=== PATIENT | female | born 1980 | race Caucasian/White ===

== ENCOUNTER 2017-06-11 16:34 | Outpatient (CLI) | payer MEDICAID ==
[2017-06-11 17:12] LABS: ADD MAN DIFF? NO
[2017-06-11 17:15] LABS: BASOPHILS % 0.3 % (0.0-2.0); EOSINOPHILS % 0.1 % (0.0-7.0); HEMOGLOBIN 11.9 g/dl (12.0-16.0); LYMPHOCYTES # 0.8 10^3/ul (0.8-2.9); LYMPHOCYTES % 8.3 % (15.0-51.0); MEAN CORPUSCULAR HEMOGLOBIN 27.9 pg (29.0-33.0); MEAN CORPUSCULAR HGB CONC 33.1 g/dl (32.0-37.0); MEAN CORPUSCULAR VOLUME 84.3 fl (82.0-101.0); MEAN PLATELET VOLUME 10.4 fl (7.4-10.4); MONOCYTE # 0.5 10^3/ul (0.3-0.9); NEUTROPHIL # 7.5 10^3/ul (1.6-7.5); NEUTROPHILS % 82.3 % (39.0-77.0); PLATELET COUNT 229 10^3/UL (140-415); RED BLOOD COUNT 4.27 10^6/ul (4.20-5.40); RED CELL DISTRIBUTION WIDTH 14.8 % (11.5-14.5)
[2017-06-11 17:15] LABS: WHITE BLOOD COUNT 9.1 10^3/ul (4.8-10.8)
[2017-06-11 17:32] LABS: ALANINE AMINOTRANSFERASE 27 IU/L (13-69); ALBUMIN 3.5 g/dl (3.3-4.9); ALBUMIN/GLOBULIN RATIO 1.09; ALKALINE PHOSPHATASE 99 IU/L (42-121); ANION GAP 15 (8-16); ASPARTATE AMINO TRANSFERASE 19 IU/L (15-46); BILIRUBIN,INDIRECT 0.8 mg/dl (0-1.1); BILIRUBIN,TOTAL 0.8 mg/dl (0.2-1.3); BLOOD UREA NITROGEN 6 mg/dl (7-20); CALCIUM 9.1 mg/dl (8.4-10.2); CARBON DIOXIDE 24 mmol/L (21-31); CHLORIDE 104 mmol/L (97-110); CREATININE 0.58 mg/dl (0.44-1.00); GLUCOSE 91 mg/dl (70-220); POTASSIUM 3.9 mmol/L (3.5-5.1); SODIUM 139 mmol/L (135-144); TOTAL PROTEIN 6.7 g/dl (6.1-8.1)
[2017-06-11] MEDS ORDERED: ONDANSETRON 4 MG INJ IV (17:40)
[2017-06-11] MEDS: LACTATED RINGER'S 1,000 ML IV (17:56)
[2017-06-11 18:38] LABS: ADD UMIC YES; UR ASCORBIC ACID NEGATIVE (NEGATIVE); UR BACTERIA FEW /HPF (NONE SEEN); UR BILIRUBIN (Dip) NEGATIVE (NEGATIVE); UR BLOOD (Dip) NEGATIVE (NEGATIVE); UR CLARITY CLOUDY (CLEAR); UR COLOR YELLOW (YELLOW); UR GLUCOSE (Dip) NEGATIVE (NEGATIVE); UR KETONES (Dip) 1+ mg/dL (NEGATIVE); UR LEUKOCYTE ESTERASE (Dip) 2+ Leu/ul (NEGATIVE); UR MUCUS FEW /HPF (NONE SEEN); UR NITRITE (Dip) NEGATIVE (NEGATIVE); UR RBC 3 /HPF (0-5); UR SPECIFIC GRAVITY (Dip) 1.019 (1.003-1.030); UR SQUAMOUS EPITHELIAL CELL MANY /HPF (FEW); UR TOTAL PROTEIN (Dip) 1+ mg/dl (NEGATIVE); UR UROBILINOGEN (Dip) 1+ mg/dL (NEGATIVE); UR WBC 29 /HPF (0-5)
[2017-06-11] MEDS: CEPHALEXIN 500 MG CAP PO (21:30)
== END 2017-06-11 22:00 | disposition home or self-care (01) ==
LOC: OBT 16:34 → L-D 16:36 → OBT 22:00
DX: O23.43 Unspecified infection of urinary tract in pregnancy, third trimester (principal); Z3A.29 29 weeks gestation of pregnancy
CPT/HCPCS: 36415; 76818; 80053; 81001; 85025; 96360; 96361

== ENCOUNTER 2017-06-29 02:19 | Inpatient (IN) | payer MEDICAID ==
[2017-06-29] MEDS: LACTATED RINGER'S 1,000 ML IV* ×2 (03:08→06:43)
[2017-06-29 03:36] LABS: ADD UMIC YES; UR ASCORBIC ACID NEGATIVE (NEGATIVE); UR BILIRUBIN (Dip) NEGATIVE (NEGATIVE); UR BLOOD (Dip) 3+ mg/dL (NEGATIVE); UR CLARITY CLEAR (CLEAR); UR COLOR YELLOW (YELLOW); UR GLUCOSE (Dip) NEGATIVE (NEGATIVE); UR KETONES (Dip) NEGATIVE (NEGATIVE); UR LEUKOCYTE ESTERASE (Dip) NEGATIVE Leu/ul (NEGATIVE); UR NITRITE (Dip) NEGATIVE (NEGATIVE); UR RBC 11 /HPF (0-5); UR SPECIFIC GRAVITY (Dip) 1.009 (1.003-1.030); UR SQUAMOUS EPITHELIAL CELL FEW /HPF (FEW); UR TOTAL PROTEIN (Dip) NEGATIVE (NEGATIVE); UR UROBILINOGEN (Dip) NEGATIVE (NEGATIVE); UR WBC 3 /HPF (0-5)
[2017-06-29] MEDS: LACTATED RINGER'S 1,000 ML IV ×2 (04:35→11:48)
[2017-06-29] MEDS ORDERED: BUTORPHANOL 2 MG INJ IV (05:00)
[2017-06-29] MEDS ORDERED: CA GLUCONATE (GM) 10% 10ML INJ IV (05:00)
[2017-06-29] MEDS ORDERED: LIDOCAINE 1% (MPF) 30 ML INJ INJ (05:00)
[2017-06-29] MEDS ORDERED: OXYCODONE/ACETAMINOPHEN (5/325) TAB PO (05:00)
[2017-06-29] MEDS ORDERED: IBUPROFEN 600 MG TAB PO (05:00)
[2017-06-29] MEDS ORDERED: METHYLERGONOVINE 0.2 MG INJ IM (05:00)
[2017-06-29] MEDS ORDERED: CARBOPROST 250 MCG INJ IM (05:00)
[2017-06-29] MEDS ORDERED: MISOPROSTOL 200 MCG TAB PR (05:00)
[2017-06-29] MEDS ORDERED: OXYTOCIN 30 UNITS/LR 500 ML IV (05:00)
[2017-06-29] MEDS ORDERED: BETAMET NA PHOS/AC(6 MG/ML) 5ML INJ (05:02)
[2017-06-29] MEDS ORDERED: AMPICILLIN 2 GM/NS (PMX) 100 ML (05:02)
[2017-06-29] MEDS: BETAMET NA PHOS/AC(6 MG/ML) 5ML INJ IM (05:09)
[2017-06-29] MEDS: AMPICILLIN 2 GM/NS (PMX) 100 ML IV (05:09)
[2017-06-29] MEDS: MAGNESIUM SULFATE 4 GM/100 ML 100 ML IV (05:15)
[2017-06-29 05:40] LABS: ADD MAN DIFF? NO
[2017-06-29 05:44] LABS: WHITE BLOOD COUNT 11.9 10^3/ul (4.8-10.8)
[2017-06-29 05:44] LABS: BASOPHIL # 0.1 10^3/ul (0.0-0.1); BASOPHILS % 0.6 % (0.0-2.0); EOSINOPHILS # 0.1 10^3/ul (0.0-0.5); EOSINOPHILS % 0.8 % (0.0-7.0); HEMATOCRIT 34.9 % (37.0-47.0); HEMOGLOBIN 11.7 g/dl (12.0-16.0); LYMPHOCYTES # 2.3 10^3/ul (0.8-2.9); LYMPHOCYTES % 19.3 % (15.0-51.0); MEAN CORPUSCULAR HEMOGLOBIN 27.9 pg (29.0-33.0); MEAN CORPUSCULAR HGB CONC 33.5 g/dl (32.0-37.0); MEAN CORPUSCULAR VOLUME 83.1 fl (82.0-101.0); MEAN PLATELET VOLUME 10.6 fl (7.4-10.4); MONOCYTE # 0.7 10^3/ul (0.3-0.9); MONOCYTES % 6.1 % (0.0-11.0); NEUTROPHIL # 8.4 10^3/ul (1.6-7.5); NEUTROPHILS % 70.6 % (39.0-77.0); PLATELET COUNT 224 10^3/UL (140-415); RED CELL DISTRIBUTION WIDTH 15.2 % (11.5-14.5)
[2017-06-29] MEDS: MAGNESIUM SULFATE 20 GM/500 ML 500 ML IV (05:51)
[2017-06-29] MEDS ORDERED: FENTAnyl 2MCG/ML-ROPIV 0.2% 100 ML (06:25)
[2017-06-29 06:38] LABS: PROTIME 12.2 Sec (11.9-14.9)
[2017-06-29 06:39] LABS: PARTIAL THROMBOPLASTIN TIME 25.9 Sec (25.0-35.0)
[2017-06-29] MEDS ORDERED: EPHEDrine SULFATE 50 MG/5 ML SYG (06:51)
[2017-06-29] MEDS: FENTAnyl 2MCG/ML-ROPIV 0.2% 100 ML BAG EPI (06:59)
[2017-06-29 07:00] LABS: HEPATITIS B SURFACE ANTIGEN NEGATIVE (NEGATIVE)
[2017-06-29] MEDS ORDERED: DIPHENHYDRAMINE 50 MG INJ IV (07:00)
[2017-06-29] MEDS ORDERED: EPHEDrine SULFATE 50 MG/5 ML SYG IV (07:00)
[2017-06-29] MEDS: EPHEDrine SULFATE 50 MG/5 ML SYG IV ×3 (07:00→07:48)
[2017-06-29] MEDS ORDERED: NALOXONE (0.4 MG/ML) INJ IV (07:00)
[2017-06-29 07:23] LABS: HIV 1&2 ANTIBODY NEGATIVE (NEGATIVE)
[2017-06-29] MEDS: ONDANSETRON 4 MG INJ IV (08:00)
[2017-06-29] MEDS: AMPICILLIN 1 GM/NS (PMX) 50 ML IV (09:14)
[2017-06-29] MEDS: OXYTOCIN 30 UNITS/LR 500 ML IV ×5 (11:48→22:40)
[2017-06-29] MEDS ORDERED: ONDANSETRON 4 MG INJ IV (15:00)
[2017-06-29] MEDS ORDERED: ACETAMINOPHEN 325 MG TAB PO (15:00)
[2017-06-29] MEDS ORDERED: HYDROCODONE/APAP (5/325) TAB PO (15:00)
[2017-06-29] MEDS ORDERED: OXYCODONE/ASPIRIN (4.88/325) TAB PO (15:00)
[2017-06-29] MEDS ORDERED: DIBUCAINE 1% 30 GM OINT PR (15:00)
[2017-06-29 15:19] LABS: RAPID PLASMA REAGIN NONREACTIVE (NR)
[2017-06-29 16:27] LABS: AMPHETAMINE/METHAMPHETAMINE Negative (NEGATIVE); BARBITURATES Negative (NEGATIVE); BENZODIAZEPINES Negative (NEGATIVE); CANNABINOIDS Negative (NEGATIVE); COCAINE Negative (NEGATIVE); OPIATES Negative (NEGATIVE)
[2017-06-29] MEDS: WITCH HAZEL/GLYCERIN PAD PR (17:40)
[2017-06-29] MEDS: BENZOCAINE 20% 56 ML SPRAY TOP (17:40)
[2017-06-29] MEDS: OXYCODONE/ASPIRIN (4.88/325) TAB PO ×2 (17:41→22:41)
[2017-06-29] MEDS: LANOLIN 7 GM TUBE TOP (17:41)
[2017-06-30] MEDS: HYDROCODONE/APAP (5/325) TAB PO (01:56)
[2017-06-30] MEDS: WITCH HAZEL/GLYCERIN PAD PR ×2 (07:59→23:38)
[2017-06-30] MEDS: OXYCODONE/ASPIRIN (4.88/325) TAB PO (07:59)
[2017-06-30] MEDS: BENZOCAINE 20% 56 ML SPRAY TOP ×2 (07:59→23:42)
[2017-06-30 08:27] LABS: ADD MAN DIFF? NO
[2017-06-30 08:39] LABS: BASOPHIL # 0.1 10^3/ul (0.0-0.1); BASOPHILS % 0.3 % (0.0-2.0); EOSINOPHILS # 0.1 10^3/ul (0.0-0.5); EOSINOPHILS % 0.4 % (0.0-7.0); HEMATOCRIT 24.9 % (37.0-47.0); HEMOGLOBIN 8.2 g/dl (12.0-16.0); LYMPHOCYTES # 2.5 10^3/ul (0.8-2.9); LYMPHOCYTES % 13.8 % (15.0-51.0); MEAN CORPUSCULAR HEMOGLOBIN 28.3 pg (29.0-33.0); MEAN CORPUSCULAR HGB CONC 32.9 g/dl (32.0-37.0); MEAN CORPUSCULAR VOLUME 85.9 fl (82.0-101.0); MEAN PLATELET VOLUME 11.3 fl (7.4-10.4); MONOCYTES % 5.3 % (0.0-11.0); NEUTROPHIL # 14.5 10^3/ul (1.6-7.5); NEUTROPHILS % 78.9 % (39.0-77.0); PLATELET COUNT 186 10^3/UL (140-415); RED CELL DISTRIBUTION WIDTH 15.4 % (11.5-14.5)
[2017-06-30 08:39] LABS: WHITE BLOOD COUNT 18.4 10^3/ul (4.8-10.8)
[2017-06-30] MEDS: SENNA/DOCUSATE NA (8.6MG/50MG) TAB PO ×2 (08:49→20:19)
[2017-06-30] MEDS: IBUPROFEN 600 MG TAB PO ×3 (13:13→23:33)
[2017-07-01] MEDS: IBUPROFEN 600 MG TAB PO ×3 (05:05→17:23)
[2017-07-01] MEDS ORDERED: MEASLES,MUMPS,RUBELLA VACCINE INJ SC* (09:00)
[2017-07-01 11:57] LABS: RUBELLA ANTIBODY - IGG 5.93 index; RUBELLA ANTIBODY - IGM <20.00 AU/mL
[2017-07-01] MEDS: SENNA/DOCUSATE NA (8.6MG/50MG) TAB PO (13:01)
[2017-07-01] MEDS: BENZOCAINE 20% 56 ML SPRAY TOP (18:12)
[2017-07-01] MEDS: WITCH HAZEL/GLYCERIN PAD PR (18:12)
== END 2017-07-01 19:15 | disposition home or self-care (01) | DRG 775 ==
LOC: OBT 02:19 → L-D 02:20 → OBT 04:58 → L-D 04:59 → PP1 14:27
PROC: 10E0XZZ Delivery of Products of Conception, External Approach (ICD-10-PCS; principal; 2017-06-29)
PROC: 0HQ9XZZ Repair Perineum Skin, External Approach (ICD-10-PCS; 2017-06-29)
DX: O60.14X0 Preterm labor third trimester with preterm delivery third trimester, not applicable or unspecified (principal); Z37.0 Single live birth; Z3A.31 31 weeks gestation of pregnancy
CPT/HCPCS: 36415; 62319; 76815; 76817; 76818; 80307; 81001; 85025; 85610; 85730; 86592; 86703; 86762; 86900; 86901; 87340; 96360; 96361; 99464

== ENCOUNTER 2018-07-19 21:13 | Emergency (ER) | payer MEDICAID | END 2018-07-20 00:57 | disposition home or self-care (01) | LOC: FTE 07-20 00:57 | DX: H10.022 Other mucopurulent conjunctivitis, left eye (principal); R05 Cough | CPT/HCPCS: 81025; 99283 ==

== ENCOUNTER 2018-08-26 17:10 | Emergency (ER) | payer MEDICAID ==
[2018-08-26] MEDS: KETOROLAC 30 MG INJ IV (21:58)
== END 2018-08-26 22:15 | disposition home or self-care (01) ==
LOC: E/R 17:10
DX: M79.18 Myalgia, other site (principal)
CPT/HCPCS: 71045; 81025; 93005; 96374; 99284-25